=== PATIENT | female | born 1950 | race Caucasian/White ===

== ENCOUNTER → 2022-04-27 | Outpatient (CLI) | payer MEDICARE, OTHER ==
--- NOTE | 2022-04-27 14:33 | CT ---
EXAMINATION TYPE: CT chest abdomen w con DATE OF EXAM: 04/27/2022 INDICATION: Malignant neoplasm of lung. Follow-up COMPARISON: 03/11/2013 CT DLP: 362.40 mGycm CONTRAST: Performed with Oral Contrast and with IV Contrast, patient injected with 70 mL of Isovue 300. TECHNIQUE: Axial images at 5 mm thick sections. Reconstructed images in the coronal plane. Delayed images through the kidneys. FINDINGS: CT CHEST: Portion of the thyroid visualized is normal. There is a 1.2 cm spiculated nodule in the upper anterior medial right lung. Series 5 image 14. Small area of pneumonitis in the periphery of the left upper lung field. Series 5 image 16. Tiny subt le density is in the posterior lateral left lung. Series 5 image 38. Subtle nodular densities in the periphery of the right upper lung field. Series 5 image 29. Some fibrosis is likely present posterior dependent lung bases. Emphysematous changes are present. No enlarged mediastinal or hilar adenopathy is evident. The ascending aorta diameter at the level of the main pulmonary artery is 2.7 cm. The main pulmonary artery diameter at the bifurcation is 2.[address] ABDOMEN: Liver: Normal Spleen: Normal Pancreas: Normal Adrenal glands: The adrenal glands are normal. Gallbladder: Normal Kidneys: No masses are evident. No hydronephrosis is present. No cysts are present. Delayed images were obtained through the kidneys, which remain unremarkable. Aorta: Vascular calcification is within the aorta. Inferior vena cava: Normal. Bowel: Loops of bowel within the abdomen and upper pelvis are normal. There are loops of bowel wh ich are incompletely distended or lack oral contrast limiting their evaluation. IMPRESSIONS: 1. 1.2 cm spiculated nodule anterior medial right apex. 2. There are few subtle punctate densities and areas of pneumonitis which are nonspecific within the bilateral lungs discussed above.
== END | disposition home or self-care (01) ==
LOC: RADCTMAIN 13:04
PROVIDERS: ATTEND Internal Medicine
DX: C34.11 Malignant neoplasm of upper lobe, right bronchus or lung (principal); J18.9 Pneumonia, unspecified organism; J98.4 Other disorders of lung; R91.1 Solitary pulmonary nodule
CPT/HCPCS: 82565; 84520; 71260; 74160; 36415; Q9967 ×2

== ENCOUNTER → 2022-07-19 | Outpatient (CLI) | payer MEDICARE, OTHER ==
--- NOTE | 2022-07-19 12:48 | CT ---
EXAMINATION TYPE: CT chest wo/w con CT DLP: 231.4 mGycm, Automated exposure control for dose reduction was used. DATE OF EXAM: 07/19/2022 12:09 PM COMPARISON: CT chest abdomen 04/27/2022, PET/CT 12/24/2021. CLINICAL INDICATION:Female, 72 years old with history of C34.11, C77.1; PHH, f/u lung ca TECHNIQUE: Multiple axial images were obtained through the chest before and after the administration of 70 cc of Isovue 300. FINDINGS: LUNGS/ PLEURA: No pleural effusion or pneumothorax. Left lower lobe and medial right upper lobe regio ns of scarring and/or atelectasis. Mild COPD changes. Stable anterior right upper lobe 8 mm nodular density (series 4, image 13). RIGHT upper lobe slightly more prominent 6 mm nodular density (series 4 , image 16). Additional 2 anterior right upper lobe subtle reticular densities are identified and sli ghtly more prominent from prior examination (series 4, image 17). New lateral right upper lobe 6 mill imeter nodular density (series 4, image 20). Stable right midlung 3 mm groundglass nodule (series 4, image 29). New left lower lobe 4 mm ground glass nodule (series 4, image 28). AIRWAY: Patent and unremarkable.. HEART: Size within normal limits. No pericardial effusion. Moderate coronary arterial calcifications. MEDIASTINUM: No gross evidence of adenopathy. VASCULATURE: No aortic aneurysm. MUSCULOSKELETAL: No acute osseous abnormalities. No aggressive osseous lesion. Scoliotic curvature of the visualized thoracic spine. Multilevel degenerative changes of the visualized spine. SOFT TISSUES/LYMPH NODES: Unremarkable. LOWER NECK: No significant findings. UPPER ABDOMEN: No significant findings. IMPRESSION: 1. Stable right upper lobe 8 mm nodular density with a few more prominent and new scattered densities throughout the lungs. The largest new nodular density within the right upper lobe measuring up to 6 mm. These new and/or enlarging densities may represent infectious/inflammatory process however recurr ent/metastasis is not excluded. Follow-up CT chest examination in 3 months is recommended.
== END | disposition home or self-care (01) ==
LOC: RADCTMAIN 11:03
PROVIDERS: ATTEND Radiology Radiation Oncology
DX: C34.11 Malignant neoplasm of upper lobe, right bronchus or lung (principal); C77.1 Secondary and unspecified malignant neoplasm of intrathoracic lymph nodes; J98.4 Other disorders of lung; R91.1 Solitary pulmonary nodule
CPT/HCPCS: 82565; 84520; 71270; 36415; Q9967

== ENCOUNTER → 2022-10-26 | Outpatient (CLI) | payer MEDICARE, OTHER ==
[2022-10-26 12:48] LABS: African American GFR (CKD) >90 (>60 ml/min/1.73 sqM); Blood Urea Nitrogen 14 mg/dL (7-17); Non-African American GFR(CKD) 86 (>60 ml/min/1.73 sqM)
--- NOTE | 2022-10-26 18:54 | CT ---
EXAMINATION TYPE: CT chest abdomen w con CT DLP: 321.6 mGycm, Automated exposure control for dose reduction was used. DATE OF EXAM: 10/26/2022 1:21 PM COMPARISON: CT chest 07/19/2022, CT chest abdomen 04/19/2022. CLINICAL INDICATION:Female, 72 years old with history of C34.11; PHH, f/u lung ca Technique: Multiple axial images of the chest, abdomen, and pelvis were obtained following the intrav enous administration of 100 mL Isovue-300. Oral contrast was administered. Two-dimensional coronal an d sagittal reconstructions were obtained. Findings: CHEST: LUNGS/ PLEURA: Increased right perihilar upper lobe and apical reticular opacities from prior examina tion. New scattered nodules throughout the lungs, with most prominently within the right upper lobe. Examples include a left upper lobe 5.8 mm nodule (series 4, image 9), right apical 8.4 mm nodule (ser ies 4, image 12), right upper lobe 4 mm nodule (series 4, image 12), right upper lobe 4.4 mm nodule ( series 4, image 17). No pleural effusion or pneumothorax. Bilateral lower lobe scarring and/or atelec tasis. Mild COPD changes. AIRWAY: Patent and unremarkable.. HEART: Size within normal limits. No pericardial effusion. Coronary tear calcifications.. MEDIASTINUM: No definitive evidence of adenopathy. VASCULATURE: No aortic aneurysm. MUSCULOSKELETAL: No acute osseous abnormalities. No aggressive osseous lesion. SOFT TISSUES/LYMPH NODES: Unremarkable. LOWER NECK: No significant findings. ABDOMEN: ABDOMEN LIVER: Unremarkable GALLBLADDER AND BILE DUCTS: Unremarkable. PANCREAS: Unremarkable. SPLEEN: Unremarkable. ADRENAL GLANDS: Unremarkable. KIDNEYS AND URETERS: No evidence of hydronephrosis or renal calculus. The kidneys enhance symmetrical ly. STOMACH AND BOWEL: Stomach and duodenum are unremarkable. Visualized focal bowel wall thickening or s urrounding inflammatory changes. No evidence of bowel obstruction. PERITONEUM: No evidence of pneumoperitoneum or free fluid. VASCULATURE: Mild atherosclerotic calcifications are present throughout the abdominal aorta and its b ranches. No abdominal aortic aneurysm. MUSCULOSKELETAL: No acute osseous abnormalities. Mild disc degeneration changes are present throughout the thoracolumbar spine. No aggressive osseous lesion. LYMPH NODES: No gross evidence for lymphadenopathy. SOFT TISSUE/ABDOMINAL WALL: Surgical clips with mesh apparent involving the intra-abdominal wall. Few soft tissue calcifications in the gluteal regions bilaterally. IMPRESSION: 1. Increased right perihilar and right upper lobe reticular opacities with new scattered nodular den sities throughout the lungs most prominently within the right upper lobe. This may represent increase d inflammatory/infectious process versus recurrent/metastatic disease. Further workup is recommended. 2. No CT evidence for metastatic disease within the abdomen.
== END | disposition home or self-care (01) ==
LOC: RADCTMAIN 12:09
PROVIDERS: ATTEND Internal Medicine
DX: C34.11 Malignant neoplasm of upper lobe, right bronchus or lung (principal); R91.8 Other nonspecific abnormal finding of lung field; J98.4 Other disorders of lung
CPT/HCPCS: 82565; 84520; 71260; 74160; 36415; Q9967

== ENCOUNTER → 2022-12-01 | Outpatient (CLI) | payer MEDICARE, OTHER ==
[2022-12-01 12:20] LABS: African American GFR (CKD) 87 (>60 ml/min/1.73 sqM); Blood Urea Nitrogen 16 mg/dL (7-17); Non-African American GFR(CKD) 76 (>60 ml/min/1.73 sqM)
--- NOTE | 2022-12-01 13:07 | CT ---
EXAMINATION TYPE: CT chest w con CT DLP: 120.10 mGycm, Automated exposure control for dose reduction was used. DATE OF EXAM: 12/01/2022 12:49 PM COMPARISON: CT chest abdomen 10/26/2022, 04/27/2022, CT chest 07/19/2022. CLINICAL INDICATION:Female, 72 years old with history of C34.11 lung ca; PHH, lung ca TECHNIQUE: Multiple axial images were obtained through the chest following the administration of 100 cc of Isovue 300. . Coronal and sagittal reformats reviewed. CHEST: LUNGS/ PLEURA: Similar right perihilar upper lobe and apical reticular opacities from prior examinati on. Stable to decreased scattered nodular densities throughout the lungs. These are most prominently within the right upper lobe. Stable nodule in the right apex measures 1 cm (series 4, image 18). No d efinitive enlarging nodules. No pleural effusion or pneumothorax. Bilateral lower lobe scarring and/o r atelectasis. Mild COPD changes. AIRWAY: Patent and unremarkable.. HEART: Size within normal limits. No pericardial effusion. Coronary artery calcifications.. MEDIASTINUM: No definitive evidence of adenopathy. VASCULATURE: No aortic aneurysm. MUSCULOSKELETAL: No acute osseous abnormalities. No aggressive osseous lesion. Mild degenerative yost ges of the thoracic spine. SOFT TISSUES/LYMPH NODES: Unremarkable. LOWER NECK: No significant findings. UPPER ABDOMEN: No significant findings. IMPRESSION: Stable right perihilar and right upper lobe reticular opacities with stable to marginally decreased n odular densities throughout the lungs most prominently within the right upper lobe. This is favored t o represent a infectious/inflammatory pneumonitis. Recurrent/metastatic disease is not entirely exclu ded. Attention on follow-up exam.
== END | disposition home or self-care (01) ==
LOC: RADCTMAIN 11:36
PROVIDERS: ATTEND Internal Medicine
DX: C34.11 Malignant neoplasm of upper lobe, right bronchus or lung (principal); R91.8 Other nonspecific abnormal finding of lung field
CPT/HCPCS: 82565; 84520; 71260; 36415; Q9967

== ENCOUNTER → 2023-03-15 | Outpatient (CLI) | payer MEDICARE, OTHER ==
[2023-03-15 10:55] LABS: African American GFR (CKD) >90 (>60 ml/min/1.73 sqM); Blood Urea Nitrogen 19 mg/dL (7-17); Non-African American GFR(CKD) 79 (>60 ml/min/1.73 sqM)
--- NOTE | 2023-03-15 15:04 | CT ---
EXAMINATION TYPE: CT chest abdomen w con DATE OF EXAM: 03/15/2023 COMPARISON: 12/01/2022 and 10/26/2022 HISTORY: 72-year-old female C34.11 LUNG CA TECHNIQUE: Contiguous axial scanning of the chest and abdomen following administration of 100 ml Isov ue 300 IV contrast. Delayed images through the kidneys and coronal/sagittal reconstructions performe d. CT DLP: 329.7 mGycm Automated exposure control for dose reduction was used. FINDINGS: CHEST: The heart is normal size without pericardial effusion. Aorta normal caliber with a conventional arch vessel branching anatomy. No thoracic lymphadenopathy by CT size criteria. There appears to be mild circumferential wall thickening of the lower two thirds of the thoracic esop hagus. Moderate emphysematous change. Similar reticular and patchy opacity anterior right upper lobe with un derlying 9 mm nodularity which appears unchanged. Additional scattered groundglass nodularity measuring up to 7 mm in the right upper lobe also unchang ed. Other scattered smaller nodules measuring 5 mm and smaller in the left upper and midlung remain uncha nged as well. No suspicious enlarging pulmonary nodule. Strandy atelectasis or scarring at the lung bases. No consolidation or pleural effusion. ABDOMEN: Small hiatal hernia. No focal liver lesion. Portal venous system is patent. No biliary ductal dilatation. Gallbladder, adrenal glands, kidneys, spleen, and pancreas within normal limits. Moderate atherosclerotic calcifications infrarenal abdominal aorta. Previous ventral abdominal wall mesh repair. There is redemonstration of a small omental fat-containi ng ventral abdominal wall hernia along the superior margin of the mesh measuring 3.2 cm wide. Moderate diffuse gastric fold thickening and mucosal hyperemia along the fundus and body of the stoma ch. No dilated small bowel, free fluid, or free air. No mesenteric or retroperitoneal lymphadenopathy. BONES: S-shaped scoliosis throughout the spine. Advanced degenerative disc disease lower thoracic and upper to mid lumbar spine. Hypertrophic facet arthropathy throughout. No osseous destructive process. Nisha l variant sternal foramen. IMPRESSION: 1. COPD WITH MODERATE EMPHYSEMA AND SIMILAR SCATTERED BILATERAL PULMONARY NODULARITY MOSTLY MEASURING UP TO 5 MM, RIGHT GREATER THAN LEFT. SOME OF THIS MAY REFLECT AN INFECTIOUS/INFLAMMATORY ETIOLOGY. 2. THE RETICULAR AND PATCHY CHANGES IN THE ANTERIOR RIGHT UPPER LOBE WITH ASSOCIATED 9 MM NODULARITY, CORRESPONDING TO THE SITE OF TREATED DISEASE AND LIKELY SURROUNDING POST RADIATION THERAPY CHANGE, A LSO REMAINS UNCHANGED. ONGOING FOLLOW-UP CLINICALLY INDICATED. 3. MILD CIRCUMFERENTIAL THICKENING OF MOST OF THE ESOPHAGUS. CORRELATE FOR ANY SYMPTOMS OF ESOPHAGITI S. POSTTHERAPY CHANGES ARE ALSO POSSIBLE.
== END | disposition home or self-care (01) ==
LOC: RADCTMAIN 10:15
PROVIDERS: ATTEND Internal Medicine
DX: C34.11 Malignant neoplasm of upper lobe, right bronchus or lung (principal); J43.9 Emphysema, unspecified; K22.89 Other specified disease of esophagus; R91.8 Other nonspecific abnormal finding of lung field
CPT/HCPCS: 82565; 84520; 71260; 74160; 36415; Q9967

== ENCOUNTER → 2023-07-18 | Outpatient (CLI) | payer MEDICARE, OTHER ==
[2023-07-18 14:29] LABS: African American GFR (CKD) 89 (>60 ml/min/1.73 sqM); Blood Urea Nitrogen 17 mg/dL (7-17); Non-African American GFR(CKD) 77 (>60 ml/min/1.73 sqM)
--- NOTE | 2023-07-19 16:05 | CT ---
EXAMINATION TYPE: CT Chest Abd Pelvis w con CT DLP: 422.40 mGycm, Automated exposure control for dose reduction was used. DATE OF EXAM: 07/18/2023 3:32 PM COMPARISON: CT CLINICAL INDICATION:Female, 73 years old with history of C34.11 Lung cancer; H, observation for met astasis. History of lung cancer. Technique: CT chest, abdomen and pelvis w con; Multiple axial images were obtained. Two-dimensional c oronal and sagittal reconstructions were obtained. Contrast used:100ml mL of Isovue 370 with IV Contrast, Oral contrast used: with Oral Contrast Findings: CHEST: LUNGS/ PLEURA: Mild centrilobular emphysema with upper lobe predominance. Stable micronodules. No wo rrisome (> 6 mm) nodules. AIRWAY: Patent and unremarkable. HEART: Size within normal limits. MEDIASTINUM: Subcarinal lymphoid mass is stable. Right hilar lymphoid tissue is smaller than prior. VASCULATURE: No aortic aneurysm. MUSCULOSKELETAL: No acute osseous abnormalities. Discogenic endplate (at L2-L3 SOFT TISSUES/LYMPH NODES: Unremarkable.. LOWER NECK: No significant findings. ABDOMEN: ABDOMEN LIVER: Unremarkable GALLBLADDER AND BILE DUCTS: Distended and ptotic PANCREAS: Unremarkable. SPLEEN: Unremarkable. ADRENAL GLANDS: Unremarkable. KIDNEYS AND URETERS: No evidence of hydronephrosis or renal calculus. The ureters are unremarkable. PELVIS BLADDER: Unremarkable REPRODUCTIVE: Unremarkable. ABDOMEN & PELVIS STOMACH AND BOWEL: Stomach and duodenum are unremarkable. No evidence of bowel obstruction. PERITONEUM: No evidence of pneumoperitoneum or free fluid. VASCULATURE: No evidence of aortic aneurysm. MUSCULOSKELETAL: No acute osseous abnormalities LYMPH NODES: No gross evidence for lymphadenopathy in the abdomen and pelvis.. SOFT TISSUE/ABDOMINAL WALL: Unremarkable IMPRESSION: Stable exam with mediastinal and right hilar lymphoid tissue which seems unchanged.
== END | disposition home or self-care (01) ==
LOC: RADCTMAIN 13:43
PROVIDERS: ATTEND Internal Medicine
DX: C34.11 Malignant neoplasm of upper lobe, right bronchus or lung (principal); R91.8 Other nonspecific abnormal finding of lung field
CPT/HCPCS: 82565; 84520; 71260; 74177; 36415; Q9967

== ENCOUNTER → 2023-10-19 | Outpatient (CLI) | payer MEDICARE, OTHER ==
[2023-10-19 10:06] LABS: African American GFR (CKD) 88 (>60 ml/min/1.73 sqM); Blood Urea Nitrogen 16 mg/dL (7-17); Non-African American GFR(CKD) 76 (>60 ml/min/1.73 sqM)
--- NOTE | 2023-10-19 11:32 | CT ---
EXAMINATION TYPE: CT ChestAbdPelvis w con DATE OF EXAM: 10/19/2023 INDICATION: f/u lung ca COMPARISON: 07/18/2023 CT DLP: 425.90 mGycm CONTRAST: Performed with Oral Contrast and with IV Contrast, patient injected with 80ml mL of Isovue 300. TECHNIQUE: Axial images at 5 mm thick sections. Reconstructed images in the coronal plane. Delayed images through the kidneys. FINDINGS: CT CHEST: Portion of the thyroid visualized is normal. There is a very subtle medial right apical mass measuring 1.1 cm. Series 5 image 14. This appears sta ble from comparison. Emphysematous changes are present. Some dependent compressive atelectasis may be present. There is some soft tissue thickening through the right hilar and subcarinal region. This is just belo w the left main pulmonary artery. Finding was present previously. [employer] was not radiotracer avid 2 022. The ascending aorta diameter at the level of the main pulmonary artery is 2.9 cm. The main pulmonary artery diameter at the bifurcation is 2.[address] ABDOMEN: Liver: Normal Spleen: Normal Pancreas: Atrophic Adrenal glands: The adrenal glands are normal. Gallbladder: Normal Kidneys: No masses are evident. No hydronephrosis is present. No cysts are present. Delayed images were obtained through the kidneys, which remain unremarkable. Aorta: Vascular calcification is within the aorta. Inferior vena cava: Normal. CT PELVIS: Loops of bowel within the abdomen and pelvis are normal. There are loops of bowel which are incom pletely distended or lack oral contrast limiting their evaluation. Appendix: Not identified. No dilated tubular structure or inflammatory changes evident. Urinary bladder: Normal. Genitourinary structures: Uterus and ovaries are not identified. Osseous structures: No suspicious lytic or sclerotic lesions. Facet changes are present in the lower lumbar spine. Scoliosis is present. IMPRESSION: 1. Stable appearance of nodular density medial right apex. 2. Stable appearance of thickening within the soft tissues of the mediastinum discussed above.
== END | disposition home or self-care (01) ==
LOC: RADCTMAIN 09:19
PROVIDERS: ATTEND Internal Medicine
DX: C34.11 Malignant neoplasm of upper lobe, right bronchus or lung (principal)
CPT/HCPCS: 82565; 84520; 71260; 74177; 36415; Q9967

== ENCOUNTER → 2024-01-29 | Outpatient (CLI) | payer MEDICARE, OTHER ==
[2024-01-29 15:51] LABS: African American GFR (CKD) 79 (>60 ml/min/1.73 sqM); Blood Urea Nitrogen 29 mg/dL (7-17); Non-African American GFR(CKD) 68 (>60 ml/min/1.73 sqM)
--- NOTE | 2024-01-29 16:57 | CT ---
EXAMINATION TYPE: CT ChestAbdPelvis w con CT DLP: 883 mGycm, Automated exposure control for dose reduction was used. DATE OF EXAM: 01/29/2024 4:47 PM COMPARISON: 10/19/2023 , 07/18/2023 CLINICAL INDICATION: Female, 73 years old with history of C34.11 LUNG CANCER; [facility], f/u for lung cance r. Technique: CT ChestAbdPelvis w con; Multiple axial images were obtained. Two-dimensional coronal and sagittal reconstructions were obtained. Contrast used:100ml mL of Isovue 300 with IV Contrast, Oral contrast used: without Oral Contrast Findings: CHEST: LUNGS/ PLEURA: Stable appearance of the anterior aspect of the right lung or enlarging pulmonary nodu les. Stable scattered sub-1 cm nodules throughout the lungs. Streaky atelectasis/scarring in the left lung base. AIRWAY: Patent and unremarkable. HEART: Size within normal limits. MEDIASTINUM: No gross evidence of adenopathy. VASCULATURE: No aortic aneurysm. MUSCULOSKELETAL: No acute osseous abnormalities., Moderate degeneration changes with joint space narr owing osteophyte formation and scoliosis changes. SOFT TISSUES/LYMPH NODES: Unremarkable. LOWER NECK: No significant findings. ABDOMEN: ABDOMEN LIVER: Unremarkable GALLBLADDER AND BILE DUCTS: Unremarkable. PANCREAS: Unremarkable. SPLEEN: Unremarkable. ADRENAL GLANDS: Unremarkable. KIDNEYS AND URETERS: No evidence of hydronephrosis or renal calculus. The ureters are unremarkable. PELVIS BLADDER: Unremarkable REPRODUCTIVE: Uterus is surgically absent. ABDOMEN & PELVIS STOMACH AND BOWEL: No evidence of bowel obstruction. Postsurgical changes to the sigmoid colon/rectum suture identified. PERITONEUM/RETROPERITONEUM: No evidence of pneumoperitoneum or free fluid. VASCULATURE: No evidence of aortic aneurysm. MUSCULOSKELETAL: No acute osseous abnormalities, increased lordosis of the lumbar spine. Multilevel d egeneration changes of the spine. There is some scoliosis changes to the lumbar spine as well. LYMPH NODES: No gross evidence for lymphadenopathy. SOFT TISSUE/ABDOMINAL WALL: Anterior abdominal wall postsurgical changes with surgical anchors presen t. IMPRESSION: No evidence for lymphadenopathy or new or enlarging pulmonary nodule. Stable scattered sub-6 mm pulmo nary nodules. [facility], Workstation: [id number], 01/29/2024 4:54 PM
== END | disposition home or self-care (01) ==
LOC: RADCTMAIN 14:42
PROVIDERS: ATTEND Internal Medicine
DX: C34.11 Malignant neoplasm of upper lobe, right bronchus or lung
CPT/HCPCS: 36415; 71260; 74177; 82565; 84520

== ENCOUNTER → 2024-06-03 | Outpatient (CLI) | payer MEDICARE, OTHER ==
[2024-06-03 11:19] LABS: African American GFR (CKD) 83 (>60 ml/min/1.73 sqM); Blood Urea Nitrogen 21 mg/dL (7-17); Non-African American GFR(CKD) 72 (>60 ml/min/1.73 sqM)
--- NOTE | 2024-06-03 13:14 | CT ---
EXAMINATION TYPE: CT ChestAbdPelvis w con DATE OF EXAM: 06/03/2024 11:49 AM COMPARISON: 01/29/2024 CLINICAL INDICATION: Female, 74 years old with history of C34.11 MALIGNANT NEOPLASM OF UPPER LOBE, RI GHT BRO; PHH, lung CA follow up Technique: CT ChestAbdPelvis w con; Multiple axial images were obtained. Two-dimensional coronal and sagittal reconstructions were obtained. Contrast used:100 mL of Isovue 300 with IV Contrast, (None if empty) Oral contrast used: with Oral Contrast CT DLP: 417.8 mGycm, Automated exposure control for dose reduction was used. Findings: CHEST: LUNGS/ PLEURA: Redemonstration of multiple nodules throughout the lungs including the anterior aspect of the right lung or enlarging pulmonary nodules. Stable scattered sub-1 cm nodules throughout the l ungs. Streaky atelectasis/scarring in the left lung base. No new or enlarging pulmonary nodules are i dentified. AIRWAY: Patent and unremarkable. HEART: Size within normal limits. Scattered calcifications in the coronary arteries. MEDIASTINUM: No gross evidence of adenopathy. VASCULATURE: No aortic aneurysm. No evidence for pulmonary embolus MUSCULOSKELETAL: No acute osseous abnormalities., Moderate degeneration changes with joint space narr owing osteophyte formation and scoliosis changes. SOFT TISSUES/LYMPH NODES: Unremarkable. LOWER NECK: No significant findings. ABDOMEN: ABDOMEN LIVER: Unremarkable GALLBLADDER AND BILE DUCTS: Unremarkable. PANCREAS: Unremarkable. SPLEEN: Unremarkable. ADRENAL GLANDS: Unremarkable. KIDNEYS AND URETERS: No evidence of hydronephrosis or renal calculus. The ureters are unremarkable. PELVIS BLADDER: Unremarkable REPRODUCTIVE: Uterus is surgically absent. ABDOMEN & PELVIS STOMACH AND BOWEL: No evidence of bowel obstruction. Postsurgical changes to the sigmoid colon/rectum suture identified. PERITONEUM/RETROPERITONEUM: No evidence of pneumoperitoneum or free fluid. VASCULATURE: No evidence of aortic aneurysm. MUSCULOSKELETAL: No acute osseous abnormalities, increased lordosis of the lumbar spine. Multilevel d egeneration changes of the spine. There is some scoliosis changes to the lumbar spine as well. LYMPH NODES: No gross evidence for lymphadenopathy. SOFT TISSUE/ABDOMINAL WALL: Anterior abdominal wall postsurgical changes with surgical anchors presen t. IMPRESSION: 1. Stable findings. There remains no evidence for lymphadenopathy or new or enlarging pulmonary nod ule. 2. Stable scattered sub-6 mm pulmonary nodules. [facility], , 06/03/2024 1:12 PM
== END | disposition home or self-care (01) ==
LOC: RADCTMAIN 10:21
PROVIDERS: ATTEND Internal Medicine
DX: C34.11 Malignant neoplasm of upper lobe, right bronchus or lung (principal); R91.1 Solitary pulmonary nodule; Z98.890 Other specified postprocedural states
CPT/HCPCS: 82565; 84520; 71260; 74177; 36415; Q9967

== ENCOUNTER → 2024-10-08 | Outpatient (CLI) | payer MEDICARE, OTHER ==
[2024-10-08 11:13] LABS: African American GFR (CKD) 84 (>60 ml/min/1.73 sqM); Blood Urea Nitrogen 17 mg/dL (7-17); Non-African American GFR(CKD) 73 (>60 ml/min/1.73 sqM)
--- NOTE | 2024-10-08 12:16 | CT ---
EXAMINATION TYPE: CT ChestAbdPelvis w con CT DLP: 416.50 mGycm, Automated exposure control for dose reduction was used. DATE OF EXAM: 10/08/2024 11:42 AM COMPARISON: Multiple chest abdomen and pelvis with most recent 06/03/2024 CLINICAL INDICATION:Female, 74 years old with history of C34.11 MALIGNANT NEOPLASM OF UPPER LOBE, RIG HT BRO; PHH, HX OF LUNG CA, OBS FOR METS. Technique: Multiple axial images of the chest, abdomen, and pelvis were obtained following the intrav enous administration of 100 mL Isovue-300. Two-dimensional coronal and sagittal reconstructions were obtained. Findings: CHEST: LUNGS/ PLEURA: Similar bilateral lower lobe dependent subsegmental atelectasis and/or scarring. No pl eural effusion, pneumothorax, focal consolidation. Mild centrilobular emphysematous changes. A few st able scattered pulmonary nodules the largest in the right midlung laterally measuring up to 4 mm (ser ies 5, 30). No new or enlarging pulmonary nodules. AIRWAY: Patent and unremarkable. HEART: Size within normal limits.No pericardial effusion. Mild calcifications in the coronary arterie s. MEDIASTINUM: No evidence of adenopathy. VASCULATURE: No aortic aneurysm. MUSCULOSKELETAL: No acute osseous abnormalities. Moderate degeneration changes with joint space narro wing, osteophyte formation and scoliosis changes. No aggressive osseous lesion. SOFT TISSUES/LYMPH NODES: Unremarkable. LOWER NECK: No significant findings. ABDOMEN: ABDOMEN LIVER: Unremarkable. Portal venous system is patent. GALLBLADDER AND BILE DUCTS: Unremarkable. PANCREAS: Unremarkable. SPLEEN: Unremarkable. ADRENAL GLANDS: Unremarkable. KIDNEYS AND URETERS: No evidence of hydronephrosis or renal calculus. The kidneys enhance symmetrical ly. Contrast is demonstrated within both collecting systems and proximal ureters on the delayed phase . PELVIS BLADDER: Incompletely distended but grossly unremarkable. REPRODUCTIVE: Uterus is surgically absent. ABDOMEN & PELVIS STOMACH AND BOWEL: No evidence of bowel obstruction. Postsurgical changes to the sigmoid colon/rectum suture identified. No focal wall thickening identified. PERITONEUM/RETROPERITONEUM: No evidence of pneumoperitoneum or free fluid. VASCULATURE: Moderate atherosclerotic calcifications are present throughout the abdominal aorta and i ts branches. No evidence of aortic aneurysm. MUSCULOSKELETAL: No acute osseous abnormalities. No aggressive osseous lesion. Multilevel degeneratio n changes of the spine. Scoliosis changes to the lumbar spine as well. LYMPH NODES: No evidence for lymphadenopathy. SOFT TISSUE/ABDOMINAL WALL: Anterior abdominal wall postsurgical changes with surgical anchors presen t. Bilateral gluteal subcutaneous tissue calcific granulomas. IMPRESSION: Overall stable examination with few scattered stable sub-6 mm pulmonary nodules. No evidence of lymph adenopathy or new or enlarging pulmonary nodules. [facility], , 10/08/2024 12:14 PM
== END | disposition home or self-care (01) ==
LOC: RADCTMAIN 10:32
PROVIDERS: ATTEND Internal Medicine
DX: C34.11 Malignant neoplasm of upper lobe, right bronchus or lung (principal); R91.8 Other nonspecific abnormal finding of lung field; C34.01 Malignant neoplasm of right main bronchus; Z87.59 Personal history of other complications of pregnancy, childbirth and the puerperium
CPT/HCPCS: 82565; 84520; 71260; 74177; 36415; Q9967